=== PATIENT | male | born 1935 | race Caucasian/White ===

== ENCOUNTER 2019-01-06 22:08 | Inpatient (IN) ==
[2019-01-06] MEDS ORDERED: Isovue-370 500 ML BOTTLE IVP ONE (22:18)
[2019-01-06 22:25] LABS: Hemoglobin 12.3 g/dL (12.9-16.9); Mean Corpuscular HGB Conc 33.2 g/dL (31.6-35.5); Mean Corpuscular Hemoglobin 29.1 pg (28.0-33.3); Mean Corpuscular Volume 87.7 fL (83.0-100.0); Platelet Count 220 K/mcL (140-400); Red Blood Count 4.22 M/mcL (4.19-5.50); Red Cell Distribution Width 13.6 % (11.5-14.5); White Blood Count 7.1 K/mcL (4.3-11.1)
[2019-01-06 22:39] LABS: Activated Partial Thrombo Time 29.3 Seconds (26.0-36.0)
[2019-01-06 22:41] LABS: BUN/Creatinine Ratio 14 (6-26); Blood Urea Nitrogen 21 mg/dL (8-23); Calcium 9.5 mg/dL (8.6-10.3); Carbon Dioxide 26 mEq/L (23-29); Chloride 102 mEq/L (98-107); Glucose 135 mg/dL (70-105); Osmolality,Calculated 289 (280-300); Potassium 4.1 mEq/L (3.5-5.1); Sodium 137 mEq/L (136-145); eGFR For African Americans 56 (> 60); eGFR For Non-African Americans 46 (> 60)
[2019-01-06 22:48] LABS: Troponin I < 0.03 ng/mL (< 0.04)
[2019-01-07] MEDS ORDERED: Aspirin 81 MG TAB.CHEW PO ONE (00:24)
[2019-01-07 03:26] LABS: Bilirubin,Urine Negative (Negative); Blood,Urine Negative (Negative); Clarity,Urine Clear (Clear); Color,Urine Yellow (Yellow); Glucose,Urine (UA) Normal (Normal); Ketones,Urine Negative (Negative); Leukocyte Esterase,Urine Negative (Negative); Nitrite,Urine Negative (Negative); Protein,Urine Negative (Neg-Trace); Specific Gravity,Urine 1.029 (1.010-1.025); Urobilinogen,Urine Normal (Normal)
[2019-01-07] MEDS ORDERED: Naloxone 0.4 MG/ML INJ IVP PRN (04:18)
[2019-01-07 05:07] LABS: Basophils # 0.1 K/mcL (0.0-0.2); Eosinophils # 0.4 K/mcL (0.0-0.6); Eosinophils % 5.6 %; Hematocrit 35.6 % (37.5-50.1); Hemoglobin 11.7 g/dL (12.9-16.9); Immature Granulocytes % 0.1 % (0-4); Immature Reticulocyte % 8.3 % (11.0-38.0); Lymphocytes # 1.6 K/mcL (0.6-4.6); Mean Corpuscular HGB Conc 32.9 g/dL (31.6-35.5); Mean Corpuscular Hemoglobin 29.6 pg (28.0-33.3); Mean Corpuscular Volume 90.1 fL (83.0-100.0); Mean Platelet Volume 11.2 fL (9.4-12.4); Monocytes # 0.6 K/mcL (0.0-1.3); Monocytes % 8.7 %; Neutrophils # 4.5 K/mcL (1.6-8.9); Platelet Count 194 K/mcL (140-400); Red Blood Count 3.95 M/mcL (4.19-5.50); Red Cell Distribution Width 13.7 % (11.5-14.5); Retculocyte # 0.04 M/mcL (0.05-0.10); Reticulocyte % 0.9 % (1.6-2.8); Segmented Neutrophils % 62.6 %; White Blood Count 7.2 K/mcL (4.3-11.1)
[2019-01-07 05:15] LABS: Amphetamine Screen,Urine Negative ng/mL (Cutoff=1000); Barbiturate Screen,Urine Negative ng/mL (Cutoff=200); Benzodiazepines Screen,Urine Negative ng/mL (Cutoff=200); Cannabinoid Screen,Urine Negative ng/mL (Cutoff = 50); Cocaine Screen,Urine Negative ng/mL (Cutoff= 300); Opiate Screen,Urine Negative ng/mL (Cutoff=300); Phencyclidine Screen,Urine Negative ng/mL (Cutoff=25)
[2019-01-07 05:16] LABS: Prothrombin Time 11.4 Seconds (9.4-12.1)
[2019-01-07] MEDS: *HR* Heparin 5,000 UNIT/ML VIAL SQ SCH ×3 (05:20→22:16)
[2019-01-07 05:30] LABS: Albumin 3.7 g/dL (3.5-5.7); Albumin/Globulin Ratio 1.3 (1.1-2.2); Bilirubin,Total 0.3 mg/dL (0.3-1.0); Calcium 9.5 mg/dL (8.6-10.3); Globulin 2.8 g/dL (2.4-3.5); Phosphorous 3.2 mg/dL (2.7-4.5); Total Protein 6.5 g/dL (6.4-8.9)
[2019-01-07 05:52] LABS: Folate 10.1 ng/mL (3.0-16.0)
[2019-01-07 10:15] LABS: Estimated Average Glucose 134 mg/dl
[2019-01-07] MEDS ORDERED: E-Z-HD (BARIUM SULF) SUSPENSION PO ONE (14:20)
[2019-01-07] MEDS ORDERED: E-Z-PAQUE (BARIUM SULF) SUSP 1 BOTTLE PO ONE (14:20)
[2019-01-07] MEDS: Metoprolol XL (24 HR) Succ 50 MG TAB.ER.24H PO SCH (16:10)
[2019-01-07] MEDS: amLODIPine 5 MG TABLET PO SCH (16:10)
[2019-01-08 04:35] LABS: Basophils # 0.1 K/mcL (0.0-0.2); Basophils % 1.3 %; Eosinophils # 0.6 K/mcL (0.0-0.6); Eosinophils % 7.4 %; Hemoglobin 11.9 g/dL (12.9-16.9); Immature Granulocytes % 0.3 % (0-4); Lymphocytes # 1.8 K/mcL (0.6-4.6); Lymphocytes % 21.9 %; Mean Corpuscular HGB Conc 32.2 g/dL (31.6-35.5); Mean Platelet Volume 11.3 fL (9.4-12.4); Monocytes # 0.8 K/mcL (0.0-1.3); Monocytes % 10.1 %; Neutrophils # 4.7 K/mcL (1.6-8.9); Platelet Count 183 K/mcL (140-400); Red Blood Count 4.11 M/mcL (4.19-5.50); Red Cell Distribution Width 13.8 % (11.5-14.5)
[2019-01-08 04:50] LABS: BUN/Creatinine Ratio 13 (6-26); Blood Urea Nitrogen 18 mg/dL (8-23); Calcium 9.5 mg/dL (8.6-10.3); Carbon Dioxide 26 mEq/L (23-29); Chloride 105 mEq/L (98-107); Glucose 106 mg/dL (70-105); Osmolality,Calculated 286 (280-300); Potassium 3.7 mEq/L (3.5-5.1); Sodium 137 mEq/L (136-145); eGFR For African Americans > 60 (> 60); eGFR For Non-African Americans 51 (> 60)
[2019-01-08] MEDS: *HR* Heparin 5,000 UNIT/ML VIAL SQ SCH ×3 (05:51→23:09)
[2019-01-08 09:16] LABS: Sodium, Urine 148.2 mEq/L
[2019-01-08] MEDS: amLODIPine 5 MG TABLET PO SCH (09:18)
[2019-01-08] MEDS: Lisinopril 20 MG TABLET PO SCH (09:18)
[2019-01-08] MEDS: Metoprolol XL (24 HR) Succ 50 MG TAB.ER.24H PO SCH (09:18)
[2019-01-08] MEDS: Aspirin Enteric Coated 81 MG Tablet PO SCH (09:18)
[2019-01-09] MEDS: *HR* Heparin 5,000 UNIT/ML VIAL SQ SCH ×3 (07:43→21:46)
[2019-01-09] MEDS: Metoprolol XL (24 HR) Succ 50 MG TAB.ER.24H PO SCH (10:06)
[2019-01-09] MEDS: amLODIPine 5 MG TABLET PO SCH (10:06)
[2019-01-09] MEDS: Aspirin Enteric Coated 81 MG Tablet PO SCH (10:06)
[2019-01-09] MEDS: Lisinopril 20 MG TABLET PO SCH (10:06)
[2019-01-10] MEDS: *HR* Heparin 5,000 UNIT/ML VIAL SQ SCH (05:50)
[2019-01-10 07:11] VITALS: BP 107/68
[2019-01-10] MEDS: Metoprolol XL (24 HR) Succ 50 MG TAB.ER.24H PO SCH (10:01)
[2019-01-10] MEDS: amLODIPine 5 MG TABLET PO SCH (10:02)
[2019-01-10] MEDS: Aspirin Enteric Coated 81 MG Tablet PO SCH (10:02)
[2019-01-10] MEDS: Lisinopril 20 MG TABLET PO SCH (10:02)
[2019-01-10] MEDS ORDERED: FLU Vac QV 19-20 (6Month+)/PF 0.5 ML SYRINGE IM ONE (10:34)
== END 2019-01-10 11:20 | DRG 65 ==
LOC: 2NENU 22:08 → EMEROOARM 22:08 → SUATTDRO 01-07 00:41 → 2NENU 01-07 01:05 → SUATTDRO 01-07 12:50
PROVIDERS: ADMIT Family Medicine; ATTEND Internal Medicine

== ENCOUNTER 2021-04-14 15:11 | Observation (INO) ==
[2021-04-14] MEDS ORDERED: 0.9 % Sodium Chloride 1,000 ML ONE (15:19)
[2021-04-14] MEDS ORDERED: 0.9 % Sodium Chloride 1,000 ML IVC ONE (15:19)
[2021-04-14 15:40] VITALS: TEMP 85.9
[2021-04-14] MEDS ORDERED: EPINEPHrine 1 MG in D5% in Water 250 ML IVC SCH (15:45)
[2021-04-14 16:05] LABS: Basophils % 0.1 %; Hematocrit 37.7 % (37.5-50.1); Hemoglobin 11.9 g/dL (12.9-16.9); Immature Granulocytes % 0.2 % (0-4); Immature Platelets 18.9 % (1.1-6.1); Lymphocytes # 0.4 K/mcL (0.6-4.6); Lymphocytes % 4.2 %; Mean Corpuscular HGB Conc 31.6 g/dL (31.6-35.5); Mean Corpuscular Hemoglobin 27.8 pg (28.0-33.3); Mean Corpuscular Volume 88.1 fL (83.0-100.0); Mean Platelet Volume 13.3 fL (9.4-12.4); Monocytes # 0.3 K/mcL (0.0-1.3); Monocytes % 3.9 %; Nucleated Red Blood Cells 0.3 /100 WBC (0); Platelet Count 119 K/mcL (140-400); Red Blood Count 4.28 M/mcL (4.19-5.50); Red Cell Distribution Width 15.7 % (11.5-14.5); Segmented Neutrophils % 91.6 %; White Blood Count 8.7 K/mcL (4.3-11.1)
[2021-04-14 16:11] LABS: INR 1.2
[2021-04-14 16:14] LABS: Activated Partial Thrombo Time 36.8 Seconds (26.0-36.0)
[2021-04-14 16:18] LABS: Alanine Aminotransferase 50 Units/L (7-52); Albumin 3.5 g/dL (3.5-5.7); Albumin/Globulin Ratio 1.2 (1.1-2.2); Alkaline Phosphatase 125 Units/L (34-104); Aspartate Amino Transferase 168 Units/L (13-39); BUN/Creatinine Ratio 15 (6-26); Bilirubin,Direct 0.3 mg/dL (0.0-0.2); Bilirubin,Indirect 0.5 mg/dL (0.0-1.0); Bilirubin,Total 0.8 mg/dL (0.3-1.0); Calcium 9.4 mg/dL (8.6-10.3); Carbon Dioxide 20 mEq/L (23-29); Chloride 101 mEq/L (98-107); Globulin 2.9 g/dL (2.4-3.5); Glucose 69 mg/dL (70-105); Lipase 56 Units/L (11-82); Magnesium 2.6 mg/dL (1.6-2.6); Osmolality,Calculated 311 (280-300); Potassium 3.8 mEq/L (3.5-5.1); Sodium 145 mEq/L (136-145); Total Protein 6.4 g/dL (6.4-8.9); eGFR For African Americans 22 (> 60); eGFR For Non-African Americans 18 (> 60)
[2021-04-14] MEDS ORDERED: Morphine Sulfate 2 MG/ML SYRINGE IVP ONE ×2 (16:47→18:26)
[2021-04-14 16:53] LABS: VBG HCO3 17 mEq/L (21-27); VBG PCO2 44 mmHg (41-51); VBG PO2 202 mmHg (25-50)
[2021-04-14 17:09] LABS: Thyroid Stimulating Hormone 2.311 mcIU/mL (0.340-5.600); Troponin I < 0.03 ng/mL (< 0.04)
[2021-04-14 17:28] LABS: Creatine Kinase 3951 Units/L (30-223)
[2021-04-14 17:55] LABS: Blood Urea Nitrogen 47 mg/dL (8-23)
[2021-04-14 19:54] LABS: Influenza A PCR Negative (Negative); Influenza B PCR Negative (Negative); Resp. Syncytial Virus PCR Negative (Negative)
[2021-04-14 19:55] LABS: SARS-CoV-2 by PCR (In House) Negative (Negative)
[2021-04-14 20:06] VITALS: O2SAT 99
[2021-04-14] MEDS ORDERED: Naloxone 0.4 MG/ML INJ IVP PRN (21:12)
[2021-04-14] MEDS ORDERED: Scopolamine Patch 1.5 MG PATCH.TD72 TD ONE (21:13)
[2021-04-14] MEDS ORDERED: *HR* LORazepam 2 MG/ML VIAL IVP PRN (21:13)
[2021-04-14] MEDS ORDERED: Morphine Sulfate Oral CONC 10 MG/0.5 ML ORAL.SYG SL PRN (21:15)
[2021-04-14 21:19] VITALS: BP 62/40; PULSE 42
== END 2021-04-15 03:50 | disposition expired ==
LOC: 2ANU 15:11 → EMEROOARM 15:11 → MERGE 21:26 → SUATTDRO 21:26 → 2ANU 22:21
PROVIDERS: ADMIT Internal Medicine; ATTEND Nurse Practitioner